=== PATIENT | female | born 1960 | race Caucasian/White ===

== ENCOUNTER → 2018-11-26 13:30 | Outpatient (CLI) | payer OTHER, SELFPAY ==
--- NOTE | 2018-11-26 | DI.MG.S_ITS ---
BILATERAL DIGITAL SCREENING MAMMOGRAM 3D/2D WITH CAD: 11/26/2018 CLINICAL: Routine screening. Family history of breast cancer. Comparison is made to exams dated: 12/26/2014 mammogram, 02/04/2008 mammogram, and 11/02/2002 mammogram - [facility]. There are scattered fibroglandular elements in both breasts. Current study was also evaluated with a Computer Aided Detection (CAD) system. No significant masses, calcifications, or other findings are seen in either breast. There has been no significant interval change. IMPRESSION: NEGATIVE There is no mammographic evidence of malignancy. A 1 year screening mammogram is recommended. This exam was interpreted at Station ID: [id number]. NOTE: For mammograms, a report in lay terms will be sent to the patient. Approximately 15% of breast malignancies will not be visualized mammographically. In the management of a palpable breast mass, a negative mammogram must not discourage biopsy of a clinically suspicious lesion. Electronically Signed By: Damir vela/meagan:11/27/2018 07:36:28 letter sent: Normal Exam ACR BI-RADS Category 1: Negative 3341F
== END ==
PROVIDERS: PCP Internal Medicine; Visit Provider Internal Medicine
DX: Z12.31 Encounter for screening mammogram for malignant neoplasm of breast (principal); Z80.3 Family history of malignant neoplasm of breast
CPT/HCPCS: 77063; 77067

== ENCOUNTER 2019-01-13 11:23 | Day surgery (SDC) | payer OTHER, SELFPAY ==
[2019-01-13 12:03] VITALS: BMI 38.7
[2019-01-13 12:17] VITALS: BP 145/85; PULSE 94; RESP 16; TEMP 36.4; O2SAT 94
[2019-01-13] MEDS: SODIUM CHLORIDE 0.9% 1,000 ML 200 ML IV (12:18)
--- NOTE | 2019-01-13 13:05 | PM.HP.1 ---
History of Present Illness Chief complaint: [id number] SCREENING COLONOSCOPY Narrative: First screening colonoscopy Patient History Social History household members: spouse Smoking Status: Former smoker Family & Social History Social History: household members spouse Tobacco & Substance use: Smoking Status Former smoker Meds Home Medications Medication Instructions Recorded Confirmed Type levothyroxine 75 mcg capsule 100 mcg PO DAILY 04/21/18 07/28/18 History trazodone 50 mg tablet 50 mg PO DAILY #90 tab 07/28/18 Rx venlafaxine ER 150 mg 300 mg PO DAILY #180 cap 07/28/18 Rx capsule,extended release 24 hr Multi Vitamin 1 tab PO DAILY 01/13/19 01/13/19 History Stress B-Complex 1 tab PO DAILY 01/13/19 01/13/19 History cholecalciferol (vitamin D3) 10 mcg PO DAILY 01/13/19 01/13/19 History fexofenadine 180 mg PO DAILY 01/13/19 01/13/19 History fluticasone propionate 1 spray INHALATION DAILY 01/13/19 01/13/19 History red yeast rice 1 tab PO DAILY 01/13/19 01/13/19 History Allergies Allergy/AdvReac Type Severity Reaction Status Date / Time surgical steel AdvReac Unknown Uncoded 01/13/19 12:16 Exam Vital Signs (past 8 hours): - 01/13/19 12:17 Temperature 97.6 F Pulse Rate 94 H Respiratory Rate 16 Blood Pressure 145/85 H Pulse Oximetry 94 Oxygen Delivery Method Room Air Narrative Exam Narrative: Oropharynx free of lesions Chest clear to auscultation percussion Cardiac exam reveals no S3 or murmur Assessment & Plan Assessment & Plan narrative: First screening colonoscopy. Risks, benefits, alternatives have been explained.
--- NOTE | 2019-01-13 13:06 | PM.OP.ENDO ---
Operative Date/Time/Diagnoses Pre-op diagnosis: See indication and findings Procedure & Clinicians Study performed: Colonoscopy Same procedure as scheduled: Yes Indications: First screening Surgeon: Osmin Figueroa Procedure Notes Procedure in detail: After informed consent was obtained the patient was placed in the left lateral decubitus position. The video colonoscope was introduced the rectum slowly advanced to the cecum. On slow withdrawal mucosa was carefully examined. The scope was removed. The patient tolerated procedure well. Preparation was excellent Blood loss none Complications none Sedation Total sedation time 21 minutes Versed 5 mg fentanyl 100 micro g IV titration Findings 1. Normal colonoscopy to cecum other than fairly tortuous left colon. Patient will need follow-up colonoscopy in 10 years.
--- NOTE | 2019-01-13 13:55 | SUR.OPER ---
PATIENTS GLASSES IN LABELED BAG TO PACU WITH PATIENT
[2019-01-13] MEDS: fentaNYL 250 MCG/5 ML INJ IV (13:59)
[2019-01-13] MEDS: MIDAZOLAM 5 MG/5 ML VIAL IV (14:00)
[2019-01-13 14:24] VITALS: BP 124/71; PULSE 86; RESP 14; TEMP 36.4; O2SAT 95
[2019-01-13 14:29] VITALS: BP 122/70; PULSE 91; RESP 15; O2SAT 95
[2019-01-13 14:31] VITALS: BP 109/75; PULSE 83; RESP 16; TEMP 36.1; O2SAT 96
== END 2019-01-13 14:41 | disposition home or self-care (01) ==
PROVIDERS: PCP Internal Medicine; Visit Provider Internal Medicine Gastroenterology
PROC: 0DJD8ZZ Inspection of Lower Intestinal Tract, Via Natural or Artificial Opening Endoscopic (ICD-10-PCS; CPT 45378; principal; 2019-01-13 13:00)
DX: Z12.11 Encounter for screening for malignant neoplasm of colon (principal)
CPT/HCPCS: 45378; J2250; J3010

== ENCOUNTER → 2023-11-20 07:35 | Outpatient (CLI) | payer OTHER, SELFPAY ==
--- NOTE | 2023-11-20 07:37 | DI.MG.S_ITS ---
BILATERAL DIGITAL SCREENING MAMMOGRAM 3D/2D WITH CAD: 11/20/2023 CLINICAL: Routine screening. Family history of breast cancer. Comparison is made to exams dated: 11/26/2018 mammogram - [facility], 12/26/2014 mammogram, and 02/04/2008 mammogram - [facility]. There are scattered areas of fibroglandular density in both breasts (category b / 25%-50% glandular tissue). Current study was also evaluated with a Computer Aided Detection (CAD) system. There is an asymmetry in the right breast posterior depth central to the nipple seen on the craniocaudal view only. No other significant masses, calcifications, or other findings are seen in either breast. IMPRESSION: INCOMPLETE: NEEDS ADDITIONAL IMAGING EVALUATION The asymmetry in the right breast is indeterminate. Additional views with possible ultrasound are recommended. Based on the Tyrer Cuzick model (a risk assessment model) the patient's lifetime risk is 9.5% and her 10 year risk is 4.4%. According to the ACR, ACS, and NCCN guidelines, an annual breast MRI exam along with mammogram is recommended if the patient's lifetime risk is 20% or greater. This exam was interpreted at Station ID: [id number]. NOTE: For mammograms, a report in lay terms will be sent to the patient. Approximately 15% of breast malignancies will not be visualized mammographically. In the management of a palpable breast mass, a negative mammogram must not discourage biopsy of a clinically suspicious lesion. Electronically Signed By: Giancarlo miranda/meagan:11/20/2023 10:20:32 letter sent: Additional Imaging Needed ACR BI-RADS Category 0: Incomplete 3340F
--- NOTE | 2023-11-20 07:37 | DI.US.S_ITS ---
PROCEDURE: US CAROTID DOPPLER BI INDICATIONS: HYPERLIPIDEMIA, AORTIC ATHEROSCLEROSIS TECHNIQUE: Color and pulse Doppler interrogation was performed of both carotid systems, with image documentation and velocity measurements. COMPARISON: None. FINDINGS: Stenosis calculations are based on SRU (Society of Radiologists in Ultrasound) criteria. Right side: Brachial blood pressure: 130/75 mm Hg. Common carotid artery peak systolic velocity: 78 cm/sec. Internal carotid artery peak systolic velocity: 70 cm/sec. Internal carotid artery end diastolic velocity: 17 cm/sec. External carotid artery peak systolic velocity: 102 cm/sec. ICA/CCA peak systolic ratio: 0.9 . Bhatti scale imaging description: Minimal plaque Percent internal carotid artery stenosis: Less than 50% . Vertebral artery: Flow direction is antegrade. Left side: Brachial blood pressure: 127/82 mm Hg. Common carotid artery peak systolic velocity: 71 cm/sec. Internal carotid artery peak systolic velocity: 74 cm/sec. Internal carotid artery end diastolic velocity: 26 cm/sec. External carotid artery peak systolic velocity: 104 cm/sec. ICA/CCA peak systolic ratio: 1.1 . Bhatti scale imaging description: Minimal plaque Percent internal carotid artery stenosis: Less than 50% . Vertebral artery: Flow direction is antegrade. IMPRESSION: Less than 50% stenosis of the internal carotid arteries bilaterally. Dictated by: Martha Robin M.D. on 11/20/2023 at 12:08 Approved by: Martha Robin M.D. on 11/20/2023 at 12:08
== END ==
LOC: US 07:36
PROVIDERS: PCP Student in an Organized Health Care Education/Training Program; Referring Provider Student in an Organized Health Care Education/Training Program; Visit Provider Student in an Organized Health Care Education/Training Program
DX: Z80.3 Family history of malignant neoplasm of breast (principal); R92.323 Mammographic fibroglandular density, bilateral breasts; Z12.31 Encounter for screening mammogram for malignant neoplasm of breast; I65.23 Occlusion and stenosis of bilateral carotid arteries; I70.0 Atherosclerosis of aorta; E78.5 Hyperlipidemia, unspecified
CPT/HCPCS: 77063; 77067; 93880

== ENCOUNTER → 2023-12-09 08:04 | Outpatient (CLI) | payer OTHER, SELFPAY ==
--- NOTE | 2023-12-09 08:05 | DI.US.S_ITS ---
LIMITED ULTRASOUND OF RIGHT BREAST: 12/09/2023 CLINICAL: Patient returns today to evaluate a focal asymmetry in the right breast. Comparison is made to exams dated: 12/09/2023 mammogram, 11/20/2023 mammogram, 11/26/2018 mammogram - [facility], and 12/26/2014 mammogram - [facility]. Real-time ultrasound of the right breast 10 o'clock region was performed. Bhatti scale images of the real-time examination were reviewed. No significant abnormalities were seen sonographically in the right breast. Specifically, no finding to correspond to the patient's 10:00 screening mammographic abnormality. IMPRESSION: PROBABLY BENIGN There is no abnormality seen in the right breast to correspond with the screening mammography finding at 10 o'clock which is most consistent with normal fibroglandular tissue. A follow-up mammogram and an ultrasound in 6 months is recommended to demonstrate stability. Findings and recommendations were conveyed to the patient at time of exam. This exam was interpreted at Station ID: [id number]. Electronically Signed By: Jennifer parsons/:12/09/2023 10:01:35 letter sent: Followup Recommended Ultrasound BI-RADS: 3 Probably benign
--- NOTE | 2023-12-09 08:05 | DI.MG.S_ITS ---
UNILATERAL RIGHT DIGITAL DIAGNOSTIC MAMMOGRAM 3D/2D WITH ADDITIONAL VIEWS: 12/09/2023 CLINICAL: Additional evaluation requested from prior study. Comparison is made to exams dated: 11/20/2023 mammogram, 11/26/2018 mammogram - [facility], and 12/26/2014 mammogram - [facility]. There are scattered areas of fibroglandular density in the right breast (category b / 25%-50% glandular tissue). There is a possible 4 mm oval asymmetry in the right breast at 10 o'clock middle depth. This is not confirmed with additional views. No other significant masses or calcifications are seen in the breast. IMPRESSION: INCOMPLETE: NEEDS ADDITIONAL IMAGING EVALUATION The possible 4 mm oval asymmetry in the right breast most likely is a cyst or a lymph node but remains indeterminate. An ultrasound is recommended. This was performed immediately following this exam. Based on the Tyrer Cuzick model (a risk assessment model) the patient's lifetime risk is 9.5% and her 10 year risk is 4.4%. According to the ACR, ACS, and NCCN guidelines, an annual breast MRI exam along with mammogram is recommended if the patient's lifetime risk is 20% or greater. This exam was interpreted at Station ID: [id number]. NOTE: For mammograms, a report in lay terms will be sent to the patient. Approximately 15% of breast malignancies will not be visualized mammographically. In the management of a palpable breast mass, a negative mammogram must not discourage biopsy of a clinically suspicious lesion. Electronically Signed By: Jennifer parsons/:12/09/2023 09:24:26 ACR BI-RADS Category 0: Incomplete 3340F
== END ==
LOC: MAMMO 08:04
PROVIDERS: PCP Student in an Organized Health Care Education/Training Program; Referring Provider Student in an Organized Health Care Education/Training Program; Visit Provider Student in an Organized Health Care Education/Training Program
DX: R92.8 Other abnormal and inconclusive findings on diagnostic imaging of breast (principal); R92.321 Mammographic fibroglandular density, right breast
CPT/HCPCS: 76642; 77065; G0279